=== PATIENT | female | born 2000 | race African-American/Black ===

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

== ENCOUNTER 2019-04-22 20:38 | Observation (INO) | payer OTHER, SELFPAY ==
[2019-04-22 20:39] VITALS: BP 134/82; PULSE 76; RESP 16; TEMP 22.7; O2SAT 100; BMI 30.4
[2019-04-22 21:46] LABS: Absolute Lymphocyte Count 1.16 X10^3/uL (0.83-4.51); Absolute Neutrophil Count 4.4 X10^3/uL (2.0-7.7); Basophil# 0.03 X10^3/uL; Basophil% 0.5 % (0-1); Eosinophil# 0.08 X10^3/uL; Eosinophils% 1.3 % (0-5); Hematocrit 35.2 % (37-47); Hemoglobin 11.1 g/dL (12.0-15.0); Lymphocyte # 1.16 X10^3/ul (4.0); Lymphocyte % 18.9 % (19-41); Mean Corp Hgb Conc 31.5 g/dL (32-36); Mean Corpuscular Hgb 27.8 pg (27.0-32.0); Mean Corpuscular Volume 88.2 fL (81-99); Monocyte# 0.43 X10^3/uL; NRBC Flagged by Analyzer 0 % (0-5); Neutrophil # 4.43 X10^3/uL (2.7-7.7); Platelet Count 283 K/mm3 (150-450); RBC Distribution Width CV 12.1 % (11.6-14.6); RBC Distribution Width SD 39.1 fl (35.1-43.9); Red Blood Count 3.99 M/mm3 (4.2-5.4); White Blood Count 6.2 K/mm3 (4.4-11.0)
[2019-04-22 22:04] LABS: Internal QC Validated? YES +Cl - CLEAR BKGD; Pregnancy, Serum, hCG Quali. NEGATIVE Negative
[2019-04-22 22:07] LABS: Anion Gap 5 (5-15); BUN 8 mg/dL (7-18); BUN/Creat Ratio 10.7 RATIO (10-20); Chloride 107 mmol/L (98-107); Creatinine, Serum 0.74 mg/dL (0.55-1.02); EST Glomerular Filtration Rate 106 mL/min (>60); Est Glom Filt Rate - Afr Amer 128 mL/min (>60); Estimated Creatinine Clearance 110.03 ml/min; Glucose 79 mg/dL (74-106); Potassium 3.6 mmol/L (3.5-5.1); Sodium Level 140 mmol/L (136-145)
[2019-04-22 22:16] LABS: Erythrocyte Sedimentation Rate 12 mm/hr (0-20)
[2019-04-22 22:17] LABS: CRP < 2.90 mg/L (0.0-3.0)
--- NOTE | 2019-04-22 22:30 | ED.DCSUM_ITS ---
- ER Visit Summary Date of Service: 04/22/19 Chief Complaint: Numbness and tingling History of Present Illness: The patient is a 18 F numbness and tingling over the right side of her body that started about an hour and a half prior to arrival. Nothing seemed to bring it on. She says it feels like her prior MS flare. Her last flare was in August 2018. She is treated by a doctor in [place]. She does not have a local neurologist. She has a history of migraines, but is denying any headache or typical headache symptoms. She denies any focal weakness, vision changes, or facial droop currently. Physical Examination: Afebrile and vital signs unremarkable. Alert and oriented. No acute distress. Right side paresthesias but otherwise exam unremarkable. Test Results: CBC, BMP, hCG, ESR, CRP unremarkable. Emergency Department Course and Treatment: Neurology was not on-call for discussion and consultation. Patient would like to stay at this facility if possible. I spoke with the hospitalist communications associate. Patient will be treated with Solu-Medrol and admitted for further care. I did attempt to contact her physician and hospital in [place], but they said no medical records were available this evening and that we would have to call back during business hours tomorrow at 9 AM. Treatment Plan: As above Disposition: Admission Impression: 1. Multiple sclerosis exacerbation This note was generated with [employer] dictation software. It may contain incorrect words, spelling, and punctuation that were not noted in review of the chart prior to signing ED Disposition - Plan for ED Patient: Referrals: [facility] Doctor,Out of [Primary Care Provider] -
--- NOTE | 2019-04-22 22:47 | HP.PCM_ITS ---
Problem List (1) Exacerbation of multiple sclerosis Status: Acute (2) Chronic anemia Status: Chronic (3) Migraines Status: Chronic Qualifiers: Migraine type: unspecified Status migrainosus presence: without status migrainosus Intractability: not intractable Qualified Code(s): G43.909 - Migraine, unspecified, not intractable, without status migrainosus History of Present Illness Date of Admission: 04/22/19 Chief Complaint: R sided paresthesias, blurry vision The patient is a 18 y/o F w/ PMHx: Hx Migraines, Multiple Sclerosis diagnosed ~ 1 year prior with at that time onset paresthesias, following w/ Neurologist in [place] with records request to go in AM (on chart, closed upon admission), 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 She does have a history of migraines and notes when she has had migraines they are primarily temporal, dull throbbing with associated light and sound sensitivity with no nausea or emesis and this is completely unlike a prior migraine and she currently denies any headache with the onset of current presentation. Work-up in the ED included 97.8, heart rate 76, BP 134/82, respiratory rate 16, 100% room air, CBC with WBC 6.2, hemoglobin 11.1, platelet 283 without market shift, unremarkable BMP, normal CRP and ESR, negative serum testing. In the ED patient administered Solu-Medrol 1000 mg x 1. Past Medical History Past Medical History (Chronic Problems): Chronic Problems Migraines (Chronic) Chronic anemia (Chronic) Allergies No Known Allergies Allergy (Verified 04/22/19 20:40) Home Medications: Ambulatory Orders Medication Instructions Recorded Topiramate [Topamax] 25 mg PO TID 04/11/18 Prednisone [Deltasone] 40 mg PO DAILY #10 tab 07/31/18 Surgical History: no surgical history Psychiatric History: No pertinent psych hx PELOTA MAKER History: No pertinent PELOTA MAKER history Lives: Alone - Patient currently lives in the dorm. 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 Smoking Status: Never smoker Tobacco Use: Non-smoker Alcohol: None Drugs: None - *Family History Maternal History Items: - - Patient notes that her mother is healthy, takes no medication, no history of diabetes, cancer, heart disease. Paternal History Items: Diabetes Review of Systems Constitutional: Reports: Malaise, Weakness, Fatigue. Denies: Anorexia, Chills, Fever, Weight Change HEENT: Denies: Head Aches, Sinus Congestion, Sinus Drainage Cardiovascular: Denies: Chest Pain, Palpitations Respiratory: Denies: Cough, Shortness of breath at rest, Sputum production Gastrointestinal: Denies: Abdominal Pain, Nausea, Vomiting Genitourinary: Denies: Dysuria Musculoskeletal: Denies: Joint Pain, Joint Tenderness Skin: Denies: Rash, Wounds Neurological: Reports: Headaches, Numbness, Tingling. Denies: Focal weakness Psychiatric: Denies: Anxiety, Depression, Homicidal Ideations, Suicidal Ideations Hematologic/ Lymphatic: Reports: Anemia. Denies: Easy Bruising, Easy Bleeding VTE Information - Inpt Only VTE Present on Admission: No VTE Mechan Device Prophylaxis: SCD's VTE Pharm Prophylaxis ordered?: No Reason prophylaxis not ordered:: Treatment Not Indicated Patient Problems: Active and Suspected Problems Exacerbation of multiple sclerosis (Acute) Subjective: Seated upright in ED bed, mildly fatigued appearance, no acute distress, notes ongoing right-sided paresthesias, unchanged. Objective: Physical Examination: General: awake, alert, oriented x 3 and cooperative, seated upright in the ED bed, mildly fatigued appearance, no acute distress. Skin: normal color, turgor, no icterus, cyanosis. HEENT: AT/NC, EOMI, PERRLA, mildly dry MM, no carotid bruits or JVD noted. Lungs: CTA bilaterally, moderate effort, mild decrease BL bases, no rales, ronchi or wheezing. Heart: Regular rate and rhythm; no gallop, rub audible. Abdomen: soft, NTTP, ND, normal BS, no HSM. Extremities: no cyanosis, clubbing, or edema. Neurological: patient awake, alert, oriented x 3; cognitive function intact; pupils equally reactive to light and accomodation; cranial nerves II-XII grossly normal, moving all 4 extremities, no focal deficits, subjective sensation decreased with mild numbness and paresthesias to the right face including forehead, right upper extremity and right lower extremity, [id number] and [id number] appropriate bilaterally, negative Babinski, strength preserved. Psychiatric: affect appears mildly fatigued, no acute evidence of depressive or anxiety feelings. - Physical Exam Vitals/I&O's: Vital Signs Temp Pulse Resp BP Pulse Ox 73 F L 76 16 134/82 H 100 04/22/19 20:39 04/22/19 20:39 04/22/19 20:39 04/22/19 20:39 04/22/19 20:39 Oxygen Delivery Method Room Air Weight: 182 lb 12.211 oz Body Mass Index (BMI) 30.4 Laboratory Results 04/22/19 21:40: WBC 6.2, RBC 3.99 L, Hgb 11.1 L, Hct 35.2 L, MCV 88.2, MCH 27.8, MCHC 31.5 L, RDW Std Deviation 39.1, RDW Coeff of Luz 12.1, Plt Count 283, MPV 8.0, Immature Gran % (Auto) 0.300, Neut % (Auto) 72.0 H, Lymph % (Auto) 18.9 L, [place] % (Auto) 7.0, Eos % (Auto) 1.3, Baso % (Auto) 0.5, Absolute Neuts (auto) 4.4, Absolute Lymphs (auto) 1.16, Nucleated RBC % 0 04/22/19 21:40: Sodium 140, Potassium 3.6, Chloride 107, Carbon Dioxide 28.0, Anion Gap 5, BUN 8, Creatinine 0.74, Estim Creat Clear Calc 110.03, Est GFR (MDRD) Af Amer 128, Est GFR (MDRD) Non-Af 106, BUN/Creatinine Ratio 10.7, Glucose 79, Calcium 9.0 04/22/19 21:40: Serum , Qual NEGATIVE 04/22/19 21:40: ESR 12 04/22/19 21:40: C-React Prot Ext Range < 2.90 Current Medications Methylprednisolone 1,000 mg/ (Sodium Chloride) 116 mls @ 100 mls/hr IV X1 ONE Stop: 04/22/19 22:56 Last Admin: 04/22/19 22:30 Dose: 100 mls/hr Documented by: Assessment/Plan All Active Problems Exacerbation of multiple sclerosis (Acute) The patient is a 18 y/o F w/ PMHx: Multiple Sclerosis diagnosed ~ 1 year prior with at that time onset paresthesias, following w/ Neurologist in [place] who presents to the [facility] ED on 04/22/19 with history of onset ~ 2-3 pm very transient blurry vision, lasting seconds with complete resolution with then onset at ~ 7 pm ongoing R sided face, primarily in cheek although initially forehead also, RUE and RLE paresthesias, described more as a mild numbness with no other neurological deficits prompting ED presentation. 1. Right-sided paresthesias concerning for multiple sclerosis flare with history of multiple sclerosis: Work-up in the ED included 97.8, heart rate 76, BP 134/82, respiratory rate 16, 100% room air, CBC with WBC 6.2, hemoglobin 11.1, platelet 283 without market shift, unremarkable BMP, normal CRP and ESR, negative serum testing. Will admit to PCU, will continue neurological assessments every 4 hours, will obtain MRI Brain with/without contrast unless altered per Neurology, maintain on fall precautions, continue IV solumedrol 1,000 mg daily, PT/OT evaluations, requested Neurology consultation, maintain on IVFs, requested UDS, Mag, TSH. Patient notes that she is on Rituxan and most recently had injection in January, obtain disease every 6 months. Records request has been filled out and is on chart and will need to be sent in the a.m. when facility in [place] opens. 2. Chronic normocytic anemia: Admission hemoglobin 11.1, prior 11.3-11.8, stable, iron panel, ferritin, vitamin B12 and folic acid pending. 3. History of migraines: Patient with 3 of migraines noted to be primarily temporal, throbbing with associated light and sound sensitivity. She denies ever having had a prior complex migraine. She notes that there was no headache with onset of current paresthesias. Continue home Topamax. 4. DVT prophylaxis: Low risk. Code Visit Inpatient E&M: 43027 Init Hosp L3
--- NOTE | 2019-04-22 23:31 | MRI_ITS ---
STUDY: MRI BRAIN WITH AND WITHOUT CONTRAST REASON FOR EXAM: Female, 18 years old. Paresthesias, history of multiple sclerosis. TECHNIQUE: Standardized multiplanar fat and water weighted pulse sequences were obtained. IV Dotarem 17 was administered for the contrast portion of the examination. COMPARISON: 02/24/2018 FINDINGS: Normal size of the ventricles and extra-axial spaces for the patient's age. No change in the single focus of hyperintensity of the peritoneal white matter of the posterior left parietal lobe consistent with known demyelinating disease (multiple sclerosis. The lesion in the left side of the justice is not clearly identified. No new lesions. There is no evidence for recent intracranial ischemia or other cause of cytotoxic edema on diffusion weighted imaging (DWI). Normal bilateral basal ganglia. Normal thalami. There is no extra-axial fluid accumulation. Normal flow voids within the major intracranial circulation suggesting patency by spin echo criteria. Normal venous enhancement. There is no enhancing intra-axial or extra-axial abnormality. Normal sella turcica, pituitary gland, infundibular stalk, optic chiasm and hypothalamus. Normal tectal plate and pineal gland. Normal midbrain, justice and medulla. Normal cerebellum. Normal basal cisterns. Normal bilateral temporal bones. Normal bilateral internal auditory canals. No demonstrated orbital abnormality, within the constraints of a routine brain study. No change in 1 cm polyp in the anterior aspect of the right sphenoid sinus. Normal calvarium and skull base. Normal visualized soft tissue structures. Normal visualized upper cervical spine. MRI/Brain W/WO Contrast IMPRESSION: 1. No change in known demyelinating disease (multiple sclerosis). No contrast-enhancing plaque. 2. No change in 1 cm polyp in the anterior right sphenoid sinus. Electronically Signed: Sylvester Dill MD at 9:52 EST Tel , Service support ,
[2019-04-22 23:35] VITALS: BMI 30.2
[2019-04-22 23:50] VITALS: BMI 30.3
[2019-04-22 23:54] VITALS: PULSE 68
[2019-04-22 23:55] VITALS: BP 138/90; PULSE 74; RESP 16; TEMP 36.9; O2SAT 100
[2019-04-23] VITALS (12 sets, daily range): BP systolic 124–134; BP diastolic 67–79; PULSE 69–90; RESP 13–18; TEMP 36.9; O2SAT 97–99
[2019-04-23 00:12] LABS: Thyroid Stim Hormone (TSH) 0.49 uIU/mL (0.358-3.74)
[2019-04-23] MEDS: 0.9% Saline Lock 10 ML Syringe IV (00:33)
[2019-04-23] MEDS: 0.9% Normal Saline 1,000 ML 125 ML IV ×2 (00:33→10:11)
[2019-04-23] MEDS: Topiramate 25 MG Tablet PO ×2 (05:55→21:08)
[2019-04-23 06:58] LABS: Absolute Lymphocyte Count 0.46 X10^3/uL (0.83-4.51); Absolute Neutrophil Count 5.7 X10^3/uL (2.0-7.7); Basophil# 0.01 X10^3/uL; Basophil% 0.2 % (0-1); Hematocrit 36.2 % (37-47); Hemoglobin 11.3 g/dL (12.0-15.0); Lymphocyte # 0.46 X10^3/ul (4.0); Lymphocyte % 7.3 % (19-41); Mean Corp Hgb Conc 31.2 g/dL (32-36); Mean Corpuscular Hgb 27.3 pg (27.0-32.0); Mean Corpuscular Volume 87.4 fL (81-99); Mean Platelet Vol. 8.2 fl (6.2-12.0); Monocyte# 0.02 X10^3/uL; Monocyte% 0.3 % (0-10); NRBC Flagged by Analyzer 0 % (0-5); Neutrophil # 5.74 X10^3/uL (2.7-7.7); Neutrophil % 91.6 % (47-70); POSITIVE DIFFERENTIAL YES; POSITIVE MORPHOLOGY YES; Platelet Count 298 K/mm3 (150-450); RBC Distribution Width SD 38.5 fl (35.1-43.9); Red Blood Count 4.14 M/mm3 (4.2-5.4); White Blood Count 6.3 K/mm3 (4.4-11.0)
[2019-04-23 07:07] LABS: Differential Indicated SCAN CRITERIA MET
[2019-04-23 08:07] LABS: Anion Gap 7 (5-15); BUN 9 mg/dL (7-18); BUN/Creat Ratio 11.8 RATIO (10-20); Chloride 110 mmol/L (98-107); Creatinine, Serum 0.76 mg/dL (0.55-1.02); EST Glomerular Filtration Rate 102 mL/min (>60); Est Glom Filt Rate - Afr Amer 124 mL/min (>60); Estimated Creatinine Clearance 107.14 ml/min; Ferritin 19 ng/mL (8-252); Glucose 161 mg/dL (74-106); Iron 47 ug/dL (50-170); Iron Binding Capacity,Total 344 ug/dL (250-450); PERCENT IRON SATURATION 13.7 % (15.0-55.0); Potassium 3.9 mmol/L (3.5-5.1); Sodium Level 140 mmol/L (136-145)
[2019-04-23 08:32] LABS: Vitamin B12 538 pg/mL (211-911)
--- NOTE | 2019-04-23 11:34 | PCM.PROGNOTE ---
<Corry Abel - Last Filed: 04/23/19 11:45> Patient Problems: Active and Suspected Problems Exacerbation of multiple sclerosis (Acute) Multiple sclerosis exacerbation (Acute) Subjective: Patient seen and examined. Reports right-sided paresthesias and weakness improved from prior. Denies any new symptoms. - Physical Exam Vitals/I&O's: Vital Signs Temp Pulse Resp BP Pulse Ox 98.4 F 69 14 124/67 H 99 04/23/19 07:55 04/23/19 07:55 04/23/19 07:55 04/23/19 07:55 04/23/19 07:55 Oxygen Delivery Method Room Air Weight: 181 lb 14.102 oz Body Mass Index (BMI) 30.2 Intake and Output for Last 24 Hours 04/21/19 04/22/19 04/23/19 23:59 23:59 23:59 Intake Total 116 / 116 1425.00 / 1425.00 Output Total 0 / 0 Balance 116 / 116 1425.00 / 1425.00 General: Alert, Oriented x3, Cooperative HEENT: Atraumatic, PERRLA, EOMI, Normocephalic Neck: Supple, No JVD, Negative Carotid Bruits Lungs: Clear to auscultation, Normal air movement Cardiovascular: Regular rate, Regular Rhythm, Normal S1, Normal S2, No murmurs Abdomen: Bowel Sounds Present, Soft, Non Tender, Non-Distended Extremities: No clubbing, No cyanosis, No edema, Capillary Refill Less than 3 Seconds Skin: No rashes, No breakdown Musculoskeletal: No Tenderness to Palpation of Joints or Extremities Neurological: Cranial nerves II-XII grossly intact, Neuro grossly intact, - - Right sided strength mildly reduced compared to the left. Sensation intact. Psych/Mental Status: Normal Affect, Appropriate Laboratory Results 04/22/19 21:40: WBC 6.2, RBC 3.99 L, Hgb 11.1 L, Hct 35.2 L, MCV 88.2, MCH 27.8, MCHC 31.5 L, RDW Std Deviation 39.1, RDW Coeff of Luz 12.1, Plt Count 283, MPV 8.0, Immature Gran % (Auto) 0.300, Neut % (Auto) 72.0 H, Lymph % (Auto) 18.9 L, [place] % (Auto) 7.0, Eos % (Auto) 1.3, Baso % (Auto) 0.5, Absolute Neuts (auto) 4.4, Absolute Lymphs (auto) 1.16, Nucleated RBC % 0 04/22/19 21:40: Sodium 140, Potassium 3.6, Chloride 107, Carbon Dioxide 28.0, Anion Gap 5, BUN 8, Creatinine 0.74, Estim Creat Clear Calc 110.03, Est GFR (MDRD) Af Amer 128, Est GFR (MDRD) Non-Af 106, BUN/Creatinine Ratio 10.7, Glucose 79, Calcium 9.0 04/22/19 21:40: Serum , Qual NEGATIVE 04/22/19 21:40: ESR 12 04/22/19 21:40: C-React Prot Ext Range < 2.90 04/22/19 21:40: Magnesium 2.0, TSH 0.49 04/23/19 06:45: WBC 6.3, RBC 4.14 L, Hgb 11.3 L, Hct 36.2 L, MCV 87.4, MCH 27.3, MCHC 31.2 L, RDW Std Deviation 38.5, RDW Coeff of Luz 12.0, Plt Count 298, MPV 8.2, Immature Gran % (Auto) 0.600, Neut % (Auto) 91.6 H, Lymph % (Auto) 7.3 L, [place] % (Auto) 0.3, Eos % (Auto) 0.0, Baso % (Auto) 0.2, Absolute Neuts (auto) 5.7, Absolute Lymphs (auto) 0.46 L, Nucleated RBC % 0 04/23/19 06:45: Sodium 140, Potassium 3.9, Chloride 110 H, Carbon Dioxide 23.0, Anion Gap 7, BUN 9, Creatinine 0.76, Estim Creat Clear Calc 107.14, Est GFR (MDRD) Af Amer 124, Est GFR (MDRD) Non-Af 102, BUN/Creatinine Ratio 11.8, Glucose 161 H, Calcium 9.0, Iron 47 L, TIBC 344, Iron Saturation 13.7 L, Ferritin 19, Folate 23.80 04/23/19 06:45: Vitamin B12 538 Current Medications Acetaminophen (Tylenol) 650 mg PO Q6H PRN PRN PRN Reason: Non-cardiac pain (mod-severe) Al Hydroxide/Mg Hydroxide (Mylanta Ii) 15 - 30 ml PO Q4H PRN PRN PRN Reason: INDIGESTION Albuterol Sulfate (Ventolin Aerosols) 2.5 mg INHALATION Q2H PRN PRN PRN Reason: dyspnea, wheezing Dextrose (D50w Syringe) 0 gm IV X1 PRN; Protocol PRN Reason: Hypoglycemia Glucagon () 1 mg IM .X1 PRN PRN Reason: Hypoglycemia Hydralazine HCl (Apresoline Iv) 10 mg IV Q4H PRN PRN PRN Reason: SBP > 160 Sodium Chloride () 1,000 mls @ 125 mls/hr IV .Q8H [facility] Last Infusion: 04/23/19 11:33 Dose: 125 mls/hr Documented by: Methylprednisolone 1,000 mg/ (Sodium Chloride) 116 mls @ 100 mls/hr IV DAILY [facility] Stop: 04/27/19 11:10 Last Admin: 04/23/19 10:09 Dose: 100 mls/hr Documented by: Sodium Chloride () 250 mls @ 15 mls/hr IV .[id number] PRN PRN Reason: Saline Flush Magnesium Hydroxide (Milk Of Magnesia) 30 ml PO DAILY PRN PRN Reason: Constipation Ondansetron HCl (Zofran) 4 mg IV Q8H PRN PRN PRN Reason: NAUSEA/VOMITING Sodium Chloride () 10 - 40 ml IV UD PRN PRN Reason: SALINE FLUSH Last Admin: 04/23/19 00:33 Dose: 10 ml Documented by: Topiramate (Topamax) 25 mg PO TID [facility] Last Admin: 04/23/19 05:55 Dose: 25 mg Documented by: Medical Necessity - Tobacco Use Smoking Status: Never smoker Tobacco Use: Non-smoker Assessment/Plan All Active Problems Exacerbation of multiple sclerosis (Acute) Multiple sclerosis exacerbation (Acute) 1. Multiple sclerosis flare with right sided paresthesias and weakness-neurology consulted. Symptoms improving. Continue IV Solu-Medrol 1000 mg daily x3 days. MRI of brain shows no change in known demyelinating disease. No contrast-enhancing plaque. No change in 1 cm polyp in the anterior right sphenoid sinus. Patient follows with neurology in [place]. Currently attending [facility] in [place]. Reports she has not had a MS flare in 6 months. Will send discharge summary to primary neurologist. 2. Chronic normocytic anemia-mildly low iron levels. Will begin iron supplementation. 3. History of migraines-continue home Topamax regimen. DVT prophylaxis-low risk This patient was seen by YANELI Agustin under the supervision of Dr. Sanchez. <Yane Sanchez - Last Filed: 04/23/19 16:42> - Physical Exam Vitals/I&O's: Vital Signs Temp Pulse Resp BP Pulse Ox 98.5 F 73 14 131/79 H 99 04/23/19 11:35 04/23/19 11:45 04/23/19 11:35 04/23/19 11:35 04/23/19 13:20 Oxygen Delivery Method Room Air Weight: 82.5 kg Body Mass Index (BMI) 30.2 Intake and Output for Last 24 Hours 04/21/19 04/22/19 04/23/19 23:59 23:59 23:59 Intake Total 116 / 116 1707.67 / 1707.67 Output Total 0 / 0 Balance 116 / 116 1707.67 / 1707.67 Laboratory Results 04/22/19 21:40: WBC 6.2, RBC 3.99 L, Hgb 11.1 L, Hct 35.2 L, MCV 88.2, MCH 27.8, MCHC 31.5 L, RDW Std Deviation 39.1, RDW Coeff of Luz 12.1, Plt Count 283, MPV 8.0, Immature Gran % (Auto) 0.300, Neut % (Auto) 72.0 H, Lymph % (Auto) 18.9 L, [place] % (Auto) 7.0, Eos % (Auto) 1.3, Baso % (Auto) 0.5, Absolute Neuts (auto) 4.4, Absolute Lymphs (auto) 1.16, Nucleated RBC % 0 04/22/19 21:40: Sodium 140, Potassium 3.6, Chloride 107, Carbon Dioxide 28.0, Anion Gap 5, BUN 8, Creatinine 0.74, Estim Creat Clear Calc 110.03, Est GFR (MDRD) Af Amer 128, Est GFR (MDRD) Non-Af 106, BUN/Creatinine Ratio 10.7, Glucose 79, Calcium 9.0 04/22/19 21:40: Serum , Qual NEGATIVE 04/22/19 21:40: ESR 12 04/22/19 21:40: C-React Prot Ext Range < 2.90 04/22/19 21:40: Magnesium 2.0, TSH 0.49 04/23/19 06:45: WBC 6.3, RBC 4.14 L, Hgb 11.3 L, Hct 36.2 L, MCV 87.4, MCH 27.3, MCHC 31.2 L, RDW Std Deviation 38.5, RDW Coeff of Luz 12.0, Plt Count 298, MPV 8.2, Immature Gran % (Auto) 0.600, Neut % (Auto) 91.6 H, Lymph % (Auto) 7.3 L, [place] % (Auto) 0.3, Eos % (Auto) 0.0, Baso % (Auto) 0.2, Absolute Neuts (auto) 5.7, Absolute Lymphs (auto) 0.46 L, Nucleated RBC % 0 04/23/19 06:45: Sodium 140, Potassium 3.9, Chloride 110 H, Carbon Dioxide 23.0, Anion Gap 7, BUN 9, Creatinine 0.76, Estim Creat Clear Calc 107.14, Est GFR (MDRD) Af Amer 124, Est GFR (MDRD) Non-Af 102, BUN/Creatinine Ratio 11.8, Glucose 161 H, Calcium 9.0, Iron 47 L, TIBC 344, Iron Saturation 13.7 L, Ferritin 19, Folate 23.80 04/23/19 06:45: Vitamin B12 538 Current Medications Acetaminophen (Tylenol) 650 mg PO Q6H PRN PRN PRN Reason: Non-cardiac pain (mod-severe) Al Hydroxide/Mg Hydroxide (Mylanta Ii) 15 - 30 ml PO Q4H PRN PRN PRN Reason: INDIGESTION Albuterol Sulfate (Ventolin Aerosols) 2.5 mg INHALATION Q2H PRN PRN PRN Reason: dyspnea, wheezing Dextrose (D50w Syringe) 0 gm IV X1 PRN; Protocol PRN Reason: Hypoglycemia Ferrous Sulfate (Ferrous Sulfate) 325 mg PO DAILY@1200 [facility] Last Admin: 04/23/19 12:40 Dose: 325 mg Documented by: Folic Acid (Folic Acid) 1 mg PO DAILY@0800 [facility] Last Admin: 04/23/19 12:40 Dose: 1 mg Documented by: Glucagon () 1 mg IM .X1 PRN PRN Reason: Hypoglycemia Hydralazine HCl (Apresoline Iv) 10 mg IV Q4H PRN PRN PRN Reason: SBP > 160 Methylprednisolone 1,000 mg/ (Sodium Chloride) 116 mls @ 100 mls/hr IV DAILY [facility] Stop: 04/25/19 11:10 Last Infusion: 04/23/19 11:50 Dose: Infused Documented by: Sodium Chloride () 250 mls @ 15 mls/hr IV .[id number] PRN PRN Reason: Saline Flush Magnesium Hydroxide (Milk Of Magnesia) 30 ml PO DAILY PRN PRN Reason: Constipation Ondansetron HCl (Zofran) 4 mg IV Q8H PRN PRN PRN Reason: NAUSEA/VOMITING Sodium Chloride () 10 - 40 ml IV UD PRN PRN Reason: SALINE FLUSH Last Admin: 04/23/19 00:33 Dose: 10 ml Documented by: Topiramate (Topamax) 25 mg PO BID [facility] Assessment/Plan This patient was seen in conjunction with Corry Abel PERINATAL NURSE. I have independently interviewed and examined the patient and reviewed pertinent historical, laboratory, and other data. Please refer to her note for patient's presentation, findings, and recommendations. Patient was seen and examined. She complains of right upper extremity numbness. Numbness in the lower extremity is resolved No acute events overnight. Denies any fever or chills nausea vomiting MRI of brain is unremarkable for new lesions. Shows old left posterior parietal lobe lesion Vitals were reviewed -stable Physical Exam: Gen: Comfortabe, not pale, not jaundiced, alert oriented x3 CVS:HS I +II, regular, no murmurs RESP: Diminished at lung bases GI: BS present and normal, nontender, no palpable organs EXT:No edema Labs reviewed: ASSESSMENT: 1. MS flare 2. Chronic iron deficiency anemia 3. History of migraines Meds reviewed Plan: We will complete 3 days of IV Solu-Medrol Follow-up on urinalysis as requested by nephrology Code Visit Inpatient E&M: 14303 Subs Hosp L2
--- NOTE | 2019-04-23 12:10 | CON.PCM_ITS ---
Problem List (1) Multiple sclerosis exacerbation Status: Acute Reason for Consult Date of Consultation: 04/23/19 Reason for Consultation: MS flare History of Present Illness: The patient is a 18 year old F with PMH MS, migraines admitted with possible MS flare. Per patient she started having right sided paresthesias since yesterday morning 04/22/2019. She denies any associated headache. Per patient she also feels that she has generalized weakness, denies any visual loss at present. Per patient she was diagnosed with MS by a neurologist at [place], had abnormal MRI and LP in the past based on which she was diagnosed with MS in April 2018, has been on Copaxone following that, later in January 2019 she was switched over to Rituxan for MS. No records available. Per patient since the start of Rituxan this is the first time she has had flareup of her MS symptoms. Per patient she has a history of migraines, is on Topamax for the same and at present per patient her migraines are well controlled and gets about 1 migraine headache a month associated with photophobia phonophobia nausea and visual blurring. Per patient of late her migraines have been very well controlled with Topamax. At present patient denies any focal motor weakness, speech disturbances, urinary incontinence or bowel bladder issues. My brain with and without contrast on admission reported to show posterior left parietal hyperintense lesion unchanged from previous, with no abnormal enhancement. 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 Smoking Status: Never smoker Tobacco Use: Non-smoker Alcohol: None Drugs: None - *Family History Maternal History Items: - - Patient notes that her mother is healthy, takes no medication, no history of diabetes, cancer, heart disease. Paternal History Items: Diabetes Review of Systems Constitutional: Reports: - - Complete ROS negative except as documented in HPI Patient Problems: Active and Suspected Problems Exacerbation of multiple sclerosis (Acute) Multiple sclerosis exacerbation (Acute) - Physical Exam Vitals/I&O's: Vital Signs Temp Pulse Resp BP Pulse Ox 98.5 F 73 14 131/79 H 97 04/23/19 11:35 04/23/19 11:45 04/23/19 11:35 04/23/19 11:35 04/23/19 11:35 Oxygen Delivery Method Room Air Weight: 82.5 kg Body Mass Index (BMI) 30.2 Intake and Output for Last 24 Hours 04/21/19 04/22/19 04/23/19 23:59 23:59 23:59 Intake Total 116 / 116 1541.00 / 1541.00 Output Total 0 / 0 Balance 116 / 116 1541.00 / 1541.00 General: Alert HEENT: Normocephalic Neck: Supple Lungs: Normal air movement Cardiovascular: Normal S1, Normal S2 Abdomen: Bowel Sounds Present Extremities: No cyanosis Neurological: - - Conscious, alert, AOA x3, CN II to XII grossly intact, power 5/5 both upper and lower extremities, plantars B/L flexor, no pronator drift, mild sensory loss right side, no cerebellar signs, gait deferred, reflexes + B/L B/S/T/K/A, No NR, fundus not visualized Psych/Mental Status: Normal Affect Laboratory Results 04/22/19 21:40: WBC 6.2, RBC 3.99 L, Hgb 11.1 L, Hct 35.2 L, MCV 88.2, MCH 27.8, MCHC 31.5 L, RDW Std Deviation 39.1, RDW Coeff of Luz 12.1, Plt Count 283, MPV 8.0, Immature Gran % (Auto) 0.300, Neut % (Auto) 72.0 H, Lymph % (Auto) 18.9 L, [place] % (Auto) 7.0, Eos % (Auto) 1.3, Baso % (Auto) 0.5, Absolute Neuts (auto) 4.4, Absolute Lymphs (auto) 1.16, Nucleated RBC % 0 04/22/19 21:40: Sodium 140, Potassium 3.6, Chloride 107, Carbon Dioxide 28.0, Anion Gap 5, BUN 8, Creatinine 0.74, Estim Creat Clear Calc 110.03, Est GFR (MDRD) Af Amer 128, Est GFR (MDRD) Non-Af 106, BUN/Creatinine Ratio 10.7, Glucose 79, Calcium 9.0 04/22/19 21:40: Serum , Qual NEGATIVE 04/22/19 21:40: ESR 12 04/22/19 21:40: C-React Prot Ext Range < 2.90 04/22/19 21:40: Magnesium 2.0, TSH 0.49 04/23/19 06:45: WBC 6.3, RBC 4.14 L, Hgb 11.3 L, Hct 36.2 L, MCV 87.4, MCH 27.3, MCHC 31.2 L, RDW Std Deviation 38.5, RDW Coeff of Luz 12.0, Plt Count 298, MPV 8.2, Immature Gran % (Auto) 0.600, Neut % (Auto) 91.6 H, Lymph % (Auto) 7.3 L, [place] % (Auto) 0.3, Eos % (Auto) 0.0, Baso % (Auto) 0.2, Absolute Neuts (auto) 5.7, Absolute Lymphs (auto) 0.46 L, Nucleated RBC % 0 04/23/19 06:45: Sodium 140, Potassium 3.9, Chloride 110 H, Carbon Dioxide 23.0, Anion Gap 7, BUN 9, Creatinine 0.76, Estim Creat Clear Calc 107.14, Est GFR (MDRD) Af Amer 124, Est GFR (MDRD) Non-Af 102, BUN/Creatinine Ratio 11.8, Glucose 161 H, Calcium 9.0, Iron 47 L, TIBC 344, Iron Saturation 13.7 L, Ferritin 19, Folate 23.80 04/23/19 06:45: Vitamin B12 538 Current Medications Acetaminophen (Tylenol) 650 mg PO Q6H PRN PRN PRN Reason: Non-cardiac pain (mod-severe) Al Hydroxide/Mg Hydroxide (Mylanta Ii) 15 - 30 ml PO Q4H PRN PRN PRN Reason: INDIGESTION Albuterol Sulfate (Ventolin Aerosols) 2.5 mg INHALATION Q2H PRN PRN PRN Reason: dyspnea, wheezing Dextrose (D50w Syringe) 0 gm IV X1 PRN; Protocol PRN Reason: Hypoglycemia Ferrous Sulfate (Ferrous Sulfate) 325 mg PO DAILY@1200 [facility] Folic Acid (Folic Acid) 1 mg PO DAILY@0800 [facility] Glucagon () 1 mg IM .X1 PRN PRN Reason: Hypoglycemia Hydralazine HCl (Apresoline Iv) 10 mg IV Q4H PRN PRN PRN Reason: SBP > 160 Sodium Chloride () 1,000 mls @ 125 mls/hr IV .Q8H [facility] Last Infusion: 04/23/19 11:33 Dose: 125 mls/hr Documented by: Methylprednisolone 1,000 mg/ (Sodium Chloride) 116 mls @ 100 mls/hr IV DAILY [facility] Stop: 04/25/19 11:10 Last Infusion: 04/23/19 11:50 Dose: Infused Documented by: Sodium Chloride () 250 mls @ 15 mls/hr IV .[id number] PRN PRN Reason: Saline Flush Magnesium Hydroxide (Milk Of Magnesia) 30 ml PO DAILY PRN PRN Reason: Constipation Ondansetron HCl (Zofran) 4 mg IV Q8H PRN PRN PRN Reason: NAUSEA/VOMITING Sodium Chloride () 10 - 40 ml IV UD PRN PRN Reason: SALINE FLUSH Last Admin: 04/23/19 00:33 Dose: 10 ml Documented by: Topiramate (Topamax) 25 mg PO TID [facility] Last Admin: 04/23/19 05:55 Dose: 25 mg Documented by: Assessment/Plan All Active Problems Exacerbation of multiple sclerosis (Acute) Multiple sclerosis exacerbation (Acute) The patient is a 18 year old F with PMH MS, migraines admitted with possible MS flare. Per patient she started having right sided paresthesias since yesterday morning 04/22/2019. She denies any associated headache. Per patient she also feels that she has generalized weakness, denies any visual loss at present. Per patient she was diagnosed with MS by a neurologist at [place], had abnormal MRI and LP in the past based on which she was diagnosed with MS in April 2018, has been on Copaxone following that, later in January 2019 she was switched over to Rituxan for MS. No records available. Per patient since the start of Rituxan this is the first time she has had flareup of her MS symptoms. Per jean-claude chen she has a history of migraines, is on Topamax for the same and at present per patient her migraines are well controlled and gets about 1 migraine headache a month associated with photophobia phonophobia nausea and visual blurring. Per patient of late her migraines have been very well controlled with Topamax. At present patient denies any focal motor weakness, speech disturbances, urinary incontinence or bowel bladder issues. My brain with and without contrast on admission reported to show posterior left parietal hyperintense lesion unchanged from previous, with no abnormal enhancement. Impression Likely MS flare/MS exacerbation History of migraines Plan -MRI brain images reviewed -On Solu-Medrol 1 g IV once daily for 3 days -On Topamax 25 mg 3 times daily for migraine, recommend to changes to 25 mg twice daily. -No records available from patient's previous and neurologist at [place] but per patient she is on Rituxan for MS at present -Labs reviewed, check UA -PT/OT -GI/DVT prophylaxis -Fall precautions -Further medical management per hospitalist team -Please call with questions if any -Follow-up with neurology in 4 weeks -Thank you for allowing us to participate in patient's care and management This note has been generated using Mediasmart dictation software. It may contain incorrect words, spellings and punctuation that were not noted in the review of the note prior to signing Code Visit Inpatient E&M: 09034 Init Hosp L3
[2019-04-23] MEDS: Ferrous Sulfate 325 MG Tablet PO (12:40)
[2019-04-23] MEDS: Folic Acid 1 MG Tablet PO (12:40)
--- NOTE | 2019-04-23 13:30 | CASEMGMT ---
RN CM EQUIPMENT MAINT TECH CM to room to meet with patient for initial transition planning/care coordination assessment. JORJE GUTIERREZ introduced self and role at [facility]. Pt voices understanding and consents to assessment at this time. Pt resting in bed in no distress at this time. Pt is A/O at this time and answers all questions appropriately. Care providers, pharmacy, and demographics verified at this time. PCP: Dr Stephane Reich in [place]. Specialists: Dr Langston--neurologist in [place] for MS Preferred [facility]acy: [facility] Insurance: Commercial Insurance Prescription Benefit: Yes Living Will/HPOA: [facility] does not have LW or HCPOA . Interested in more information and would like to talk to for assistance with completing paperwork. Agueda AYON, notified. Provided information on advanced directives and given Social Service rac card with number to call as an out-pt if is not able to see pt prior to discharge. LNOK: Mother Living Arrangements: Clyde is in [place]. Is currently student @ [employer] and lives on campus in dorm. Transportation: Does not have a car in [place]. Gets rides with friends. Given [facility] Van transportation information if she would need for [facility]/[email or web address] appts. DME: Denies using any DME and denies needs. Pt wishes to return back to [facility] @ discharge. She plans on flying back home to [place] on Saturday and states plans to call today to make appt with her neurologist in [place] next week so she can be seen while back home visiting. Discussed OP therapy and pt states she may be interested. Script obtained from YANELI Agustin, and given to pt. She was made aware she can take to location of her choice if she decides she does want to do OP therapy. Pt states has considered finding a local PCP and neurologist that she can go to while in [place]/@ [facility]. She plans to call her insurance company to see who is in network. Denies needing assistance at this time. CM to follow for any further discharge planning/needs. Advised pt to ask for CM if any further questions/concerns/needs arise. Voices understanding. PLAN: Discharge back to [facility] w/discharge plans in place. Pt to make follow-up appt with her neurologist in [place] next week. Pt has been given script for OP therapy. Jerrod LEW RN, CM
--- NOTE | 2019-04-23 15:47 | CHAPLAIN ---
Type of Pastoral Visit _x__ Initial Visit ___ Follow-up Visit ___ On-call Visit ___ General Patient Visit ___ Spiritual Assessment ___ Family Conference ___ Bereavement ___ Rapid Response ___ Code Blue ___ Other (describe below) Pastoral Care Referral From _x__ Patient ___ Family ___ Nurse ___ Physician ___ Title Curator ___ Screw Machine Repairer ___ Other (describe below) Sacrament/Intervention _x__ Active listening ___ Anointing ___ Sikh ___ Bereavement ___ Communion ___ Shirley exploration ___ ___ Life review _x__ Prayer ___ Reconciliation ___ Sacrament of Sick _x__ Supportive presence ___ Wedding ___ Other (describe below) Pastoral Comments
[2019-04-24] VITALS (8 sets, daily range): BP systolic 115–142; BP diastolic 60–85; PULSE 66–78; RESP 14–18; TEMP 36.8–36.9; O2SAT 97–99
[2019-04-24] MEDS: Topiramate 25 MG Tablet PO (10:16)
[2019-04-24] MEDS: Ferrous Sulfate 325 MG Tablet PO (10:16)
[2019-04-24] MEDS: Folic Acid 1 MG Tablet PO (10:16)
[2019-04-24] MEDS: 0.9% Saline Lock 10 ML Syringe IV (10:28)
[2019-04-24 10:47] LABS: Amphetamine Urine VISTA NEGATIVE (<1000 ng/mL); Barbiturate Urine VISTA NEGATIVE (< 200 ng/mL); Benzodiazepine Urine VISTA NEGATIVE (< 200 ng/mL); Cocaine Urine VISTA NEGATIVE (< 300 ng/mL); Ecstacy Urine VISTA NEGATIVE (< 500 ng/mL); Methadone Urine VISTA NEGATIVE (< 300 ng/mL); PCP Urine VISTA NEGATIVE (< 25 ng/mL); THC Urine VISTA NEGATIVE (< 50 ng/mL); Vista UDS pH Range 6
--- NOTE | 2019-04-24 11:11 | CASEMGMT ---
SW completed a Healthcare POA with patient. Copies made and given to patient along with originals. A copy was also placed in patient's chart. Agueda FOWLER
--- NOTE | 2019-04-24 11:54 | DCINST_ITS ---
- Discharge Diagnoses Current Active Problems: Current Active and Chronic Problems Exacerbation of multiple sclerosis (Acute) Chronic anemia (Chronic) Multiple sclerosis exacerbation (Acute) You will use the following diet at home:: No restrictions Discharge Activity: Return to Normal Activity Call your doctor if you observe: Shortness of breath, Dizziness, Fainting spells, Chest pain Allergies/Adverse Reactions: Allergies No Known Allergies Allergy (Verified 04/22/19 20:40) Medications to take at Discharge Topiramate [Topamax] 25 mg PO TID 04/11/18 Ferrous Sulfate 325 mg PO DAILY@1200 #30 tab 04/24/19 Folic Acid 1 mg PO DAILY@0800 #30 tab 04/24/19 The following prescriptions were given: Ferrous Sulfate 325 mg PO DAILY@1200 #30 tab Transmission Status: Pending to [facility] Folic Acid 1 mg PO DAILY@0800 #30 tab Transmission Status: Pending to [facility] Primary Care Physician: Rona Doctor,Out of [NON-STAFF] - Please follow up with your Primary Care Physician in: 1-2 Weeks Test Results: Test results from this visit will be discussed in further detail at your follow- up appointment, if applicable. Please Follow Up With: Primary Neurologist When: 1 Week Proposed Discharge Date: 04/24/19
--- NOTE | 2019-04-24 12:04 | DS.PCM_ITS ---
<Corry Abel - Last Filed: 04/24/19 12:16> Discharge Date and Diagnosis Date of Admission: 04/22/19 Date of Discharge: 04/24/19 - Primary Discharge Diagnosis Active and Suspected Problems 1. Multiple sclerosis exacerbation with right sided paresthesias and weakness 2. Chronic normocytic anemia 3. History of migraines - Secondary Discharge Diagnosis Chronic Problems Migraines (Chronic) Chronic anemia (Chronic) Hospital Course and Treatment Imaging Results: Diagnostic Data Brain MRI 04/22/19 23:31 IMPRESSION: 1. No change in known demyelinating disease (multiple sclerosis). No contrast-enhancing plaque. 2. No change in 1 cm polyp in the anterior right sphenoid sinus. Electronically Signed: Sylvester Dill MD at 9:52 EST Tel , Service support , Dr. Martínez- Neurology Operations: None Procedures: None Summary of Care Provided: The patient is a 18 year old F admitted 04/22/2019 due to right sided paresthesias and blurry vision. 1. Multiple sclerosis exacerbation with right sided paresthesias and weakness- Neurology consulted. Symptoms improved. Patient received IV Solu-Medrol 1000 mg daily x3 doses. MRI of brain shows no change in known demyelinating disease. No contrast-enhancing plaque. No change in 1 cm polyp in the anterior right sphenoid sinus. Patient follows with neurology in [place]. Currently attending college in [place]. Reports she has not had a MS flare in 6 months. Patient will return to [place] on Saturday for gi break. Follow-up with primary neurology in 1 week. 2. Chronic normocytic anemia-mildly low iron levels. Initiated on iron and folic acid supplementation. 3. History of migraines-continue home Topamax regimen. General: Alert, Oriented x3, Cooperative HEENT: Atraumatic, PERRLA, EOMI, Normocephalic Neck: Supple, No JVD, Negative Carotid Bruits Lungs: Clear to auscultation, Normal air movement Cardiovascular: Regular rate, Regular Rhythm, Normal S1, Normal S2, No murmurs Abdomen: Bowel Sounds Present, Soft, Non Tender, Non-Distended Extremities: No clubbing, No cyanosis, No edema, Capillary Refill Less than 3 Seconds Skin: No rashes, No breakdown Musculoskeletal: No Tenderness to Palpation of Joints or Extremities Neurological: Cranial nerves II-XII grossly intact, Neuro grossly intact, Right sided strength mildly reduced compared to the left. Sensation intact. Psych/Mental Status: Normal Affect, Appropriate Patient seen and examined prior to discharge. Physical assessment as noted above. Patient is stable for discharge with follow up recommendations as noted above. This patient was seen by YANELI Agustin under the supervision of Dr. Sanchez. - Physical Exam Vitals/I&O's: Vital Signs Temp Pulse Resp BP Pulse Ox 98.5 F 70 14 115/60 97 04/24/19 11:46 04/24/19 11:46 04/24/19 11:46 04/24/19 11:46 04/24/19 11:46 Oxygen Delivery Method Room Air Weight: 181 lb 14.102 oz Body Mass Index (BMI) 30.2 Intake and Output for Last 24 Hours 04/22/19 04/23/19 04/24/19 23:59 23:59 23:59 Intake Total 116 / 116 2527.67 / 2747.67 436 / 436 Output Total 0 / 0 Balance 116 / 116 2527.67 / 2747.67 436 / 436 Laboratory Results 04/22/19 11:22: Urine Opiates Screen NEGATIVE, Urine Methadone Screen NEGATIVE, Ur Barbiturates Screen NEGATIVE, Ur Phencyclidine Scrn NEGATIVE, Ur Amphetamines Screen NEGATIVE, U Methamphetamin-MDMA NEGATIVE, U Benzodiazepines Scrn NEGATIVE, Urine Cocaine Screen NEGATIVE, U Cannabinoids Screen NEGATIVE, Ur Drug Screen Comment Current Medications Acetaminophen (Tylenol) 650 mg PO Q6H PRN PRN PRN Reason: Non-cardiac pain (mod-severe) Al Hydroxide/Mg Hydroxide (Mylanta Ii) 15 - 30 ml PO Q4H PRN PRN PRN Reason: INDIGESTION Albuterol Sulfate (Ventolin Aerosols) 2.5 mg INHALATION Q2H PRN PRN PRN Reason: dyspnea, wheezing Dextrose (D50w Syringe) 0 gm IV X1 PRN; Protocol PRN Reason: Hypoglycemia Ferrous Sulfate (Ferrous Sulfate) 325 mg PO DAILY@1200 [facility] Last Admin: 04/24/19 10:16 Dose: 325 mg Documented by: Folic Acid (Folic Acid) 1 mg PO DAILY@0800 [facility] Last Admin: 04/24/19 10:16 Dose: 1 mg Documented by: Glucagon () 1 mg IM .X1 PRN PRN Reason: Hypoglycemia Hydralazine HCl (Apresoline Iv) 10 mg IV Q4H PRN PRN PRN Reason: SBP > 160 Methylprednisolone 1,000 mg/ (Sodium Chloride) 116 mls @ 100 mls/hr IV DAILY [facility] Stop: 04/25/19 11:10 Last Infusion: 04/24/19 11:48 Dose: Infused Documented by: Sodium Chloride () 250 mls @ 15 mls/hr IV .[id number] PRN PRN Reason: Saline Flush Magnesium Hydroxide (Milk Of Magnesia) 30 ml PO DAILY PRN PRN Reason: Constipation Ondansetron HCl (Zofran) 4 mg IV Q8H PRN PRN PRN Reason: NAUSEA/VOMITING Sodium Chloride () 10 - 40 ml IV UD PRN PRN Reason: SALINE FLUSH Last Admin: 04/24/19 10:28 Dose: 10 ml Documented by: Topiramate (Topamax) 25 mg PO BID [facility] Last Admin: 04/24/19 10:16 Dose: 25 mg Documented by: Discharge Diet: No Restrictions Discharge Activity: Return to Normal Activity Call your doctor if you observe: Shortness of breath, Dizziness, Fainting spells, Chest pain Home Medications: Medications to take at Discharge Ferrous Sulfate 325 mg PO DAILY@1200 #30 tab 04/24/19 Folic Acid 1 mg PO DAILY@0800 #30 tab 04/24/19 Topiramate [Topamax] 25 mg PO BID #60 tab 04/24/19 Following Prescrptions Were Given to Patient: Ferrous Sulfate 325 mg PO DAILY@1200 #30 tab Transmission Status: Received by [facility] Folic Acid 1 mg PO DAILY@0800 #30 tab Transmission Status: Received by [facility] Topiramate [Topamax] 25 mg PO BID #60 tab Transmission Status: Received by [facility] Primary Care Physician: [facility] Doctor,Out of [NON-STAFF] - Please follow up with your Primary Care Physician in: 1-2 Weeks Please Follow Up With: Primary Neurologist When: 1 Week Disposition: Home Minutes spent on discharge:: 35 Patient Condition:: Stable Medical Necessity - Tobacco Use Smoking Status: Never smoker Tobacco Use: Non-smoker Meaningful Use Info Meaningful Use Diagnoses (Choose all that apply): None applicable <Paintsil,Belcher - Last Filed: 04/26/19 05:30> Discharge Date and Diagnosis - Secondary Discharge Diagnosis Chronic Problems Migraines (Chronic) Chronic anemia (Chronic) Hospital Course and Treatment Summary of Care Provided: This patient was seen in conjunction with Corry Abel NP. I have independently interviewed and examined the patient and reviewed pertinent historical, laboratory, and other data. Please refer to her note for patient's presentation, findings, and recommendations. 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 She was managed as a MS flare. She received high dose steroids for 3 days with improvement in her symptoms. MRI of brain is unremarkable for new lesions. Shows old left posterior parietal lobe lesion Physical Exam: Gen: Comfortabe, not pale, not jaundiced, alert oriented x3 CVS:HS I +II, regular, no murmurs RESP: Diminished at lung bases GI: BS present and normal, nontender, no palpable organs EXT:No edema - Physical Exam Vitals/I&O's: Vital Signs Temp Pulse Resp BP Pulse Ox 98.5 F 70 14 115/60 97 04/24/19 11:46 04/24/19 11:46 04/24/19 11:46 04/24/19 11:46 04/24/19 11:46 Oxygen Delivery Method Room Air Weight: 82.5 kg Body Mass Index (BMI) 30.2 Intake and Output for Last 24 Hours 04/24/19 04/25/19 04/26/19 23:59 23:59 23:59 Intake Total 436 / 436 Balance 436 / 436 Code Visit Inpatient E&M: 49220 Disch Hosp
--- NOTE | 2019-04-24 13:09 | PN.NEURO_ITS ---
Subjective: No issues overnight. Care discussed with the nursing staff. Per patient her right sided numbness is improving. Continues to have some mild right facial and right arm numbness, right lower extremity numbness/paresthesias is improved - Physical Exam Vitals/I&O's: Vital Signs Temp Pulse Resp BP Pulse Ox 98.5 F 70 14 115/60 97 04/24/19 11:46 04/24/19 11:46 04/24/19 11:46 04/24/19 11:46 04/24/19 11:46 Oxygen Delivery Method Room Air Weight: 82.5 kg Body Mass Index (BMI) 30.2 Intake and Output for Last 24 Hours 04/22/19 04/23/19 04/24/19 23:59 23:59 23:59 Intake Total 116 / 116 2527.67 / 2747.67 436 / 436 Output Total 0 / 0 Balance 116 / 116 2527.67 / 2747.67 436 / 436 General: Alert HEENT: Normocephalic Neck: Supple Lungs: Normal air movement Cardiovascular: Normal S1, Normal S2 Abdomen: Bowel Sounds Present Extremities: No cyanosis Neurological: - - Conscious, alert, AOA x3, CN II to XII grossly intact, power 5/5 both upper and lower extremities, plantars B/L flexor, no pronator drift, mild sensory loss right face/arm, improved in the right leg, no cerebellar signs, gait deferred, reflexes + B/L B/S/T/K/A, No NR, fundus not visualized Psych/Mental Status: Normal Affect Laboratory Results 04/22/19 11:22: Urine Opiates Screen NEGATIVE, Urine Methadone Screen NEGATIVE, Ur Barbiturates Screen NEGATIVE, Ur Phencyclidine Scrn NEGATIVE, Ur Amphetamines Screen NEGATIVE, U Methamphetamin-MDMA NEGATIVE, U Benzodiazepines Scrn NEGATIVE, Urine Cocaine Screen NEGATIVE, U Cannabinoids Screen NEGATIVE, Ur Drug Screen Comment Current Medications Acetaminophen (Tylenol) 650 mg PO Q6H PRN PRN PRN Reason: Non-cardiac pain (mod-severe) Al Hydroxide/Mg Hydroxide (Mylanta Ii) 15 - 30 ml PO Q4H PRN PRN PRN Reason: INDIGESTION Albuterol Sulfate (Ventolin Aerosols) 2.5 mg INHALATION Q2H PRN PRN PRN Reason: dyspnea, wheezing Dextrose (D50w Syringe) 0 gm IV X1 PRN; Protocol PRN Reason: Hypoglycemia Ferrous Sulfate (Ferrous Sulfate) 325 mg PO DAILY@1200 [facility] Last Admin: 04/24/19 10:16 Dose: 325 mg Documented by: Folic Acid (Folic Acid) 1 mg PO DAILY@0800 [facility] Last Admin: 04/24/19 10:16 Dose: 1 mg Documented by: Glucagon () 1 mg IM .X1 PRN PRN Reason: Hypoglycemia Hydralazine HCl (Apresoline Iv) 10 mg IV Q4H PRN PRN PRN Reason: SBP > 160 Methylprednisolone 1,000 mg/ (Sodium Chloride) 116 mls @ 100 mls/hr IV DAILY [facility] Stop: 04/25/19 11:10 Last Infusion: 04/24/19 11:48 Dose: Infused Documented by: Sodium Chloride () 250 mls @ 15 mls/hr IV .[id number] PRN PRN Reason: Saline Flush Magnesium Hydroxide (Milk Of Magnesia) 30 ml PO DAILY PRN PRN Reason: Constipation Ondansetron HCl (Zofran) 4 mg IV Q8H PRN PRN PRN Reason: NAUSEA/VOMITING Sodium Chloride () 10 - 40 ml IV UD PRN PRN Reason: SALINE FLUSH Last Admin: 04/24/19 10:28 Dose: 10 ml Documented by: Topiramate (Topamax) 25 mg PO BID [facility] Last Admin: 04/24/19 10:16 Dose: 25 mg Documented by: STROKE Vital Signs/Narrative: Vital Signs Temp Pulse Resp BP Pulse Ox 04/24/19 11:46 98.5 F 70 14 115/60 97 04/24/19 11:05 77 Medical Necessity - Tobacco Use Smoking Status: Never smoker Tobacco Use: Non-smoker Assessment/Plan All Active Problems Exacerbation of multiple sclerosis (Acute) Multiple sclerosis exacerbation (Acute) The patient is a 18 year old F with PMH MS, migraines admitted with possible MS flare. Per patient she started having right sided paresthesias since yesterday morning 04/22/2019. She denies any associated headache. Per patient she also feels that she has generalized weakness, denies any visual loss at present. Per patient she was diagnosed with MS by a neurologist at [place], had abnormal MRI and LP in the past based on which she was diagnosed with MS in April 2018, has been on Copaxone following that, later in January 2019 she was switched over to Rituxan for MS. No records available. Per patient since the start of Rituxan this is the first time she has had flareup of her MS symptoms. Per patient she has a history of migraines, is on Topamax for the same and at present per patient her migraines are well controlled and gets about 1 migraine headache a month associated with photophobia phonophobia nausea and visual blurring. Per patient of late her migraines have been very well controlled with Topamax. At present patient denies any focal motor weakness, speech disturbances, urinary incontinence or bowel bladder issues. My brain with and without contrast on admission reported to show posterior left parietal hyperintense lesion unchanged from previous, with no abnormal enhancement. Impression Likely MS flare/MS exacerbation History of migraines Plan -MRI brain images reviewed -On Solu-Medrol 1 g IV once daily for 3 days -On Topamax 25 mg twice daily. -No records available from patient's previous and neurologist at [place] but per patient she is on Rituxan for MS at present -Labs reviewed, check UA. UDS negative -PT/OT -GI/DVT prophylaxis -Fall precautions -Further medical management per hospitalist team -Please call with questions if any -Follow-up with neurology in 4 weeks -Thank you for allowing us to participate in patient's care and management This note has been generated using [employer] dictation software. It may contain incorrect words, spellings and punctuation that were not noted in the review of the note prior to signing
== END 2019-04-24 14:27 | disposition home or self-care (01) | DRG 60 ==
LOC: ED 21:50 → PCU 04-23 03:55
PROVIDERS: Admitting Provider Family Medicine; Emergency Provider Emergency Medicine; Referring Provider Family Medicine; Visit Provider Internal Medicine
DX: G35 Multiple sclerosis (principal); D50.9 Iron deficiency anemia, unspecified; G43.909 Migraine, unspecified, not intractable, without status migrainosus; Z23 Encounter for immunization; Z79.899 Other long term (current) drug therapy
CPT/HCPCS: 36415; 70553; 80048; 80307; 82607; 82728; 82746; 83540; 83550; 83735; 84443; 84703; 85025; 85652; 86140; 94762; 97161; 99218; 99251; 99283; A9575; J7030; 90686; A4216; G0378; G0463; J2930